=== PATIENT | female | born 1960 | race Caucasian/White ===

== ENCOUNTER 2016-10-31 02:39 | Emergency (ER) | payer BC ==
[2016-10-31] MEDS ORDERED: NS 0.9% 1000 ML* 1,000 ML IV ONE (03:04)
[2016-10-31] MEDS ORDERED: Ketorolac INJ* 30 MG/ML 1 ML VIAL IV ONE (03:04)
[2016-10-31] MEDS ORDERED: Ondansetron INJ* 2 MG/ML VIAL IV ONE (03:04)
[2016-10-31 03:25] LABS: Albumin 4.5 g/dL (3.2-5.2); BUN/Creatinine Ratio 15.4 (8-20); Calcium 9.8 mg/dL (8.6-10.3); EGFR African American 70.8 (>60); Globulin 2.4 g/dL (2-4); Magnesium 2.1 mg/dL (1.9-2.7); Potassium 3.7 mmol/L (3.5-5.0); Total Bilirubin 0.9 mg/dL (0.2-1.0); Total Protein 6.9 g/dL (6.4-8.9)
[2016-10-31 03:26] LABS: Hematocrit 41 % (35-47); Mean Corpuscular HGB Conc 34 g/dl (31-36); Mean Corpuscular Hemoglobin 32 pg (27-31); Mean Corpuscular Volume 94 fL (80-97); Mean Platelet Volume 9 um3 (7.4-10.4); Red Blood Count 4.35 10^6/ul (4.0-5.4); Red Cell Distribution Width 13 % (10.5-15); White Blood Count 9.4 10^3/ul (3.5-10.8)
--- NOTE | 2016-10-31 04:08 | ED ---
Luz Nair SooYoung, scribed for Joe Arias MD on 10/31/16 at 0307 . Back Pain - HPI Summary HPI Summary: A 56 y/o F presents to ED with c/o sudden-onset, L flank pain onset 2329. Associated sx: n/v. She took some Maalox but threw up afterwards. Denies dysuria , hematuria. She notes having similar pain four days ago, but it went away after a few hours. NKA. - History of Current Complaint Chief Complaint: EDFlankPain Stated Complaint: BACK/ABD PAIN Hx Obtained From: Patient Onset/Duration: Sudden Onset, Lasting Hours, Still Present Timing: Constant Back Pain Location: Is Discrete @ - L flank, Radiates To - L abd Severity Currently: Severe Pain Intensity: 10 Pain Scale Used: 0-10 Numeric Associated Signs And Symptoms: Positive: Other - pos: n/v - Allergies/Home Medications Allergies/Adverse Reactions: Allergies Allergy/AdvReac Type Severity Reaction Status Date / Time No Known Allergies Allergy Verified 10/31/16 02:44 PMH/Surg Hx/FS Hx/Imm Hx Previously Healthy: Yes Sensory History: Denies: Hx Eye Prosthesis, Hx Legally Blind Opthamlomology History: Denies: Hx Eye Prosthesis, Hx Legally Blind Infectious Disease History: Denies: Traveled Outside the [place] in Last 30 Days - Social History Occupation: Unemployed - HOMEMAKER Lives: With Family Review of Systems Positive: Vomiting, Nausea Positive: flank pain - L All Other Systems Reviewed And Are Negative: Yes Physical Exam Triage Information Reviewed: Yes Vital Signs On Initial Exam: Initial Vitals Temp Pulse Resp BP Pulse Ox 95.5 F 78 22 127/99 97 10/31/16 02:43 10/31/16 02:43 10/31/16 02:43 10/31/16 02:43 10/31/16 02:43 Vital Signs Reviewed: Yes Appearance: Positive: Well-Appearing, Pain Distress - mild discomfort Skin: Positive: Warm Head/Face: Positive: Normal Head/Face Inspection Eyes: Positive: GUILLERMO ENT: Positive: Hearing grossly normal Neck: Positive: Supple Respiratory/Lung Sounds: Positive: Clear to Auscultation, Breath Sounds Present Cardiovascular: Positive: RRR Abdomen Description: Positive: Nontender, Soft. Negative: CVA Tenderness (R), CVA Tenderness (L) Bowel Sounds: Positive: Present Musculoskeletal: Positive: Strength/ROM Intact Neurological: Positive: Alert, Oriented to Person Place, Time Psychiatric: Positive: Affect/Mood Appropriate Diagnostics - Vital Signs Vital Signs Temp Pulse Resp BP Pulse Ox 10/31/16 02:43 95.5 F 78 22 127/99 97 - Laboratory Lab Results: Lab Results 10/31/16 10/31/16 10/31/16 Range/Units 03:00 03:00 03:00 WBC 9.4 (3.5-10.8) 10^3/ul RBC 4.35 (4.0-5.4) 10^6/ul Hgb 14.0 (12.0-16.0) g/dl Hct 41 (35-47) % MCV 94 (80-97) fL MCH 32 H (27-31) pg MCHC 34 (31-36) g/dl RDW 13 (10.5-15) % Plt Count 197 (150-450) 10^3/ul MPV 9 (7.4-10.4) um3 Neut % (Auto) 81.5 (38-83) % Lymph % (Auto) 13.5 L (25-47) % [place] % (Auto) 3.9 (1-9) % Eos % (Auto) 0.8 (0-6) % Baso % (Auto) 0.3 (0-2) % Absolute Neuts (auto) 7.7 (1.5-7.7) 10^3/ul Absolute Lymphs (auto) 1.3 (1.0-4.8) 10^3/ul Absolute Monos (auto) 0.4 (0-0.8) 10^3/ul Absolute Eos (auto) 0.1 (0-0.6) 10^3/ul Absolute Basos (auto) 0 (0-0.2) 10^3/ul Absolute Nucleated RBC 0 10^3/ul Nucleated RBC % 0 Sodium 141 (133-145) mmol/L Potassium 3.7 (3.5-5.0) mmol/L Chloride 104 (101-111) mmol/L Carbon Dioxide 28 (22-32) mmol/L Anion Gap 9 (2-11) mmol/L BUN 16 (6-24) mg/dL Creatinine 1.04 H (0.51-0.95) mg/dL Est GFR ( Amer) 70.8 (>60) Est GFR (Non-Af Amer) 55.0 (>60) BUN/Creatinine Ratio 15.4 (8-20) Glucose 136 H (70-100) mg/dL Lactic Acid 0.9 (0.5-2.0) mmol/L Calcium 9.8 (8.6-10.3) mg/dL Magnesium 2.1 (1.9-2.7) mg/dL Total Bilirubin 0.90 (0.2-1.0) mg/dL AST 15 (13-39) U/L ALT 12 (7-52) U/L Alkaline Phosphatase 59 (34-104) U/L Total Protein 6.9 (6.4-8.9) g/dL Albumin 4.5 (3.2-5.2) g/dL Globulin 2.4 (2-4) g/dL Albumin/Globulin Ratio 1.9 (1-3) Lipase 36 (11.0-82.0) U/L Beta HCG, Quant 4.66 mIU/mL Result Diagrams: 10/31/16 03:00 10/31/16 03:00 Lab Statement: Any lab studies that have been ordered have been reviewed, and results considered in the medical decision making process. - CT ABD/PEL CT CT Interpretation: Positive (See Comments) - IMPRESSION: Obstructing calculus in the L UVJ. CT Interpretation Completed By: Radiologist Re-Evaluation - Re-Evaluation 1 Re-Evaluation Time: 05:24 Change: Improved Comment: Discussing results and dispo with pt. Pt feeling better. Pt voiced understanding. Back Pain Course/Dx - Course Course Of Treatment: Pt is a 56 y/o F presenting with c/o sudden-onset, L flank pain onset 2329. Associated sx: n/v. Denies dysuria, hematuria. She notes having similar pain four days ago, but it went away after a few hours. NKA. Pt given fluids, Toradol, Zofran in ED. Blood work results are without significant abnormalities. UA results show 2+ blood, 2+ RBC, trace ketones, and specific gravity of 1.008. ABD/PEL CT shows "obstructing calculus in the L UVJ.". Will D /C pt home to f/u with urology. - Diagnoses Provider Diagnoses: Renal colic Discharge - Discharge Plan Condition: Improved Disposition: HOME Patient Education Materials: Renal Colic (ED) Referrals: Yu Ledezma NP [Primary Care Provider] - Eduardo Muller MD [Medical Doctor] - 1 Day Additional Instructions: Follow up with Dr. Muller, urology, within the next day. Please return to the ED if you experience new or worsening symptoms. The documentation as recorded by the Luz andrew SooYoung accurately reflects the service I personally performed and the decisions made by me, Joe Arias MD.
[2016-10-31 05:19] LABS: Urine Bacteria Absent (Absent); Urine Bilirubin Negative (Negative); Urine Glucose Negative (Negative); Urine Nitrite Negative (Negative)
[2016-10-31 05:48] VITALS: BP 129/66
--- NOTE | 2016-10-31 08:02 | RAD ---
CLINICAL HISTORY: Left flank pain COMPARISON: None TECHNIQUE: Multiple contiguous axial CT scans were obtained of the abdomen and pelvis, without intravenous contrast enhancement. Coronal and sagittal multiplanar reformations are submitted for review. Oral contrast was not administered. FINDINGS: The study is limited by the lack of intravenous contrast. This limits evaluation of the solid organs and vasculature. LUNG BASES: The lung bases are clear. LIVER: There is a 1.1 cm cystic lesion measuring simple fluid attenuation of the left lobe of liver most consistent with a simple hepatic cyst. BILE DUCTS: There is no intrahepatic or extrahepatic biliary dilatation. GALLBLADDER: The gallbladder is normal, without pericholecystic inflammatory change. PANCREAS: The pancreas is normal, without mass or ductal dilatation. SPLEEN: Normal in size and appearance. UPPER GI TRACT: Evaluation of the gastrointestinal tract is limited by incomplete gastric distention. There is a small sliding hiatal hernia. SMALL BOWEL AND MESENTERY: The small bowel is normal in contour, course, and caliber. There is no obstruction or dilatation. COLON: The colon is normal in contour, course, caliber. There is no pericolonic inflammatory change. There is a tubular, vermiform, hollow viscus that is blind ending, and originates from the cecum, consistent with a normal appendix. There is no periappendiceal inflammatory change. . ADRENALS: Normal bilaterally. KIDNEYS: There is a 0.4 cm calculus of the left UVJ. There is mild pelviectasis with moderate hydroureter. BLADDER: As noted above, there is left UVJ calculus. PELVIC ORGANS: The uterus and adnexa are grossly normal for technique. AORTA: The aorta is normal. IVC: Unremarkable LYMPH NODES: There is no lymphadenopathy by size criteria. ABDOMINAL WALL: There is no evidence for abdominal wall hernia. BONES AND SOFT TISSUES: There are mild diffuse degenerative changes. OTHER: None IMPRESSION: 0.4 CM LEFT UVJ STONE WITH MILD LEFT-SIDED HYDRONEPHROSIS.
== END 2016-10-31 05:48 | disposition home or self-care (01) ==
LOC: ED 02:39
DX: R10.84 Generalized abdominal pain (principal); R11.2 Nausea with vomiting, unspecified
CPT/HCPCS: 36415; 74176; 80053; 81003; 81015; 83605; 83690; 83735; 84702; 85025; 96374; 96375; 99283; J1885; J2405